=== PATIENT | female | born 2000 | race Caucasian/White ===

== ENCOUNTER 2022-06-23 19:44 | Emergency (ER) | payer BC ==
[2022-06-24] MEDS ORDERED: HYDROCODONE-AC1 EAC1 PO (00:18)
== END 2022-06-24 00:46 | disposition home or self-care (01) ==
LOC: ED 19:44
DX: S63.91XA Sprain of unspecified part of right wrist and hand, initial encounter (principal); S50.01XA Contusion of right elbow, initial encounter; M79.601 Pain in right arm; V29.9XXA Motorcycle rider (driver) (passenger) injured in unspecified traffic accident, initial encounter; Y93.89 Activity, other specified; Y92.89 Other specified places as the place of occurrence of the external cause; Y99.8 Other external cause status

== ENCOUNTER → 2023-02-19 | Outpatient (CLI) | payer BC ==
[~2023-02-19] MED LIST: HYDROCODONE-AC1 EAC1 PO
[2023-02-19 13:12] LABS: FREE T4 0.83 ng/dl (0.89-1.76); THYROID STIM HORMONE (HS) 7.359 uIU/ml (0.550-4.780)
== END | disposition home or self-care (01) ==
LOC: LAB 11:22
PROVIDERS: ATTEND Family Medicine
DX: I95.9 Hypotension, unspecified (principal); R42 Dizziness and giddiness; R53.83 Other fatigue

== ENCOUNTER → 2023-06-21 | Outpatient (CLI) | payer BC ==
[2023-06-21 10:59] LABS: HEMATOCRIT 40.9 % (37.0-47.0); MEAN CELL VOLUME 90.9 fl (81.0-99.0); MEAN CORPUSCULAR HGB 30.4 pg (27.0-31.0); MEAN CORPUSCULAR HGB CONC 33.5 g/dl (33.0-37.0); MEAN PLATELET VOLUME 8.8 fl (9.6-12.3); RED BLOOD COUNT 4.5 10*6/uL (4.10-5.10); RED CELL DISTRI WIDTH 13.3 % (0-14.5); WHITE BLOOD COUNT 8.7 10*3/uL (4.8-10.8)
[2023-06-21 12:02] LABS: ALKALINE PHOSPHATASE 89 U/L (46-116); BUN 7 mg/dl (9-23); CHLORIDE 105 mmol/L (98-107); FREE T4 0.79 ng/dl (0.89-1.76); POTASSIUM 4.7 mmol/L (3.4-5.1); SGPT/ALT 25 U/L (10-49); TOTAL PROTEIN 7.1 gm/dL (6.0-8.0)
== END | disposition home or self-care (01) ==
LOC: LAB 10:38
PROVIDERS: ATTEND Family Medicine
DX: E03.9 Hypothyroidism, unspecified (principal); R53.83 Other fatigue